=== PATIENT | female | born 1945 | race Caucasian/White ===

== ENCOUNTER → 2021-01-16 13:00 | Outpatient (CLI) | payer MEDICARE, SELFPAY ==
--- NOTE | 2021-01-16 13:09 | DI.ECHO.S_ITS ---
[facility] +---------+ : : [address] : [place] : : : : [id number] : : : : Phone: [phone]---------+ Echocardiogram Report + + :Name: ANTONIETA NEWMAN Study Date: 01/16/2021 Height: 66 in : :[facility] ReadingLocation: Weight: 160 lb : : Gender: Female BSA: 1.8 m2 : :: 1945 Age: 75 yrs BP: 186/92 mmHg: :Reason For Study: CHEST PAIN : :Ordering Physician: RONALD, : :SLOAN Performed By: Analilia Alba : :Referring: SLOAN CARDENAS : + + Interpretation Summary The ejection fraction is estimated to be 55-60%. There is no significant valvular heart disease. Procedure: A two-dimensional transthoracic echocardiogram with color flow and Doppler was performed. The study quality was technically adequate. There is no prior echocardiogram noted for this patient. The patient was in sinus rhythm with heart rates between 74-82 bpm during the exam. Left Ventricle: The left ventricle is normal in size and wall thickness. The ejection fraction is estimated to be 55-60%. Left ventricular wall motion is normal. Right Ventricle: The right ventricle is normal in size and function. Atria: The left atrium is severely dilated. Right atrial size is normal. There is no Doppler evidence for an interatrial shunt. Mitral Valve: The mitral valve is normal in structure and function. There is trace mitral regurgitation. Aortic Valve: The aortic valve is trileaflet. The aortic valve opens well. The aortic valve is slightly calcified. There is no aortic valve stenosis. No aortic regurgitation is present. Tricuspid Valve: The tricuspid valve is normal in structure and function. There is trace tricuspid regurgitation. Pulmonary artery pressures cannot be estimated because of the lack of a measurable TR jet velocity but the IVC suggests a CVP of around 3 mmHg. Pulmonic Valve: The pulmonic valve leaflets are thin and pliable; valve motion is normal. There is trace pulmonic regurgitation. Great Vessels: The aortic root is normal size. The ascending aorta is mildly enlarged. The aortic arch is mild-moderately enlarged. The IVC is of normal diameter and collapses greater than 50% with a sniff. This suggests a low right atrial pressure of 3 mm Hg. Pericardium/ Pleura There is no pericardial effusion. There is no pleural effusion. MMode/2D Measurements & Calculations LVIDd: 4.5 cm LVOT diam: 2.0 cm LVIDs: 3.0 cm Ao root diam: 3.4 cm FS: 33.7 % asc Aorta Diam: 3.6 cm IVSd: 0.92 cm Ao Arch Diam (Prox Trans): 3.8 cm LVPWd: 0.88 cm LV ying. diameter/BSA (cm/m^2): 2.5 LV sys. diameter/BSA (cm/m^2): 1.6 LA A2 area: 24.9 cm2 RA long axis: 5.6 cm LA A4 area: 21.5 cm2 RA area: 17.3 cm2 LA length (vol): 5.2 cm RA vol: 45.5 ml LA vol: 88.0 ml RA : 25.0 ml/m2 LA vol index: 48.4 ml/m2 IVC diam: 1.3 cm RVD1 (basal): 3.5 cm TAPSE: 2.5 cm Doppler Measurements & Calculations Ao V2 max: 156.6 cm/sec LVOT Max Bhavesh: 103.5 cm/sec Ao V2 mean: 104.3 cm/sec LV V1 max P.3 mmHg Ao max P.8 mmHg LV V1 VTI: 24.7 cm Ao mean P.2 mmHg MACKENZIE(I,D): 2.2 cm2 Ao V2 VTI: 35.7 cm MACKENZIE(V,D): 2.1 cm2 sev ratio: 0.69 MACKENZIE indexed to BSA (cm^2/m^2): 1.2 MV E max bhavesh: 48.0 cm/sec PA V2 max: 105.8 cm/sec MV A max bhavesh: 101.7 cm/sec PA V2 mean: 75.3 cm/sec MV E/A: 0.47 PA mean P.5 mmHg Med Peak E' Bhavesh: 4.1 cm/sec PA pr(Accel): 51.6 mmHg E/E' med: 11.7 Lat Peak E' Bhavesh: 6.6 cm/sec E/E' lat: 7.3 E/e' average: 9.5 MV dec time: 0.25 sec SV(LVOT): 77.5 ml Reading Physician:03:54 PM
[2021-01-16 16:17] LABS: COVID19 -Nasal RAPID Negative (Negative)
--- NOTE | 2021-01-22 18:23 | DI.NM.S_ITS ---
DATE OF SERVICE: PROCEDURE: Pharmacological perfusion study. DATE OF STUDY: 01/16/2021 INDICATIONS: Chest pain with underlying hypertension. RADIOPHARMACEUTICAL: 26.3 millicurie technetium-99m Myoview IV was injected at stress and 26.6 millicurie technetium-99m Myoview IV was injected at rest. CARDIAC STRESS: The patient underwent IV Lexiscan perfusion study under the supervision of an attending staff as per standard intravenous Lexiscan protocol. Baseline blood pressure was 180/110, which got decreased to 170/112 with Lexiscan. Rhythm was sinus. During stress no convincing ischemic changes or significant arrhythmias. No chest pain. RAW DATA: Breast shadow was seen. GATED STUDY: Resting LV ejection fraction 74% and stress LV ejection fraction 75%. Resting end-diastolic volume 116 mL. TID ratio 1.0, which is within normal limits. Lung/heart ratio 0.33 which is within normal limits. MYOCARDIAL PERFUSION SCAN: Stress supine, resting supine and stress prone images were compared to each other. Resting supine images revealed small size, mildly decreased perfusion of basal anterior wall. Stress supine images revealed small size, mildly decreased perfusion of distal anterior wall. During stress prone images, there was normal myocardial perfusion. CONCLUSION: I will call this study a normal myocardial perfusion study with evidence of breast tissue attenuation artifact which got resolved during the stress prone images. Left ventricular function is preserved. Baseline hypertensive with blood pressure 180/110. However, mid-level informed patient as well as PCP to adjust blood pressure medication. Vero Adler - LUCIO/king/nishant doc#: [id number]/job#: [id number] dd: 01/22/2021 17:27:00 dt: 01/22/2021 18:10:00 DICTATING MD/COPIES TO: Shamika Gómez MD COPIES MNE: NATALI;
== END ==
PROVIDERS: PCP Physician Assistant Medical; Referring Provider Physician Assistant Medical; Visit Provider Physician Assistant Medical
DX: R07.9 Chest pain, unspecified (principal); Z20.822 Contact with and (suspected) exposure to COVID-19
CPT/HCPCS: 78452; 87635; 93017; 93306; A9502; J2785